=== PATIENT | male | born 1960 | race Caucasian/White ===

== ENCOUNTER 2018-06-18 13:25 | Outpatient (CLI) | payer BC ==
--- NOTE | 2018-07-15 12:09 | ULT ---
LOWER EXTREMITY ARTERIAL EVALUATION: Lower extremity arterial evaluation was performed using Doppler waveform analysis and segmental limb pressures. The Doppler waveform analysis in both lower extremities is normal. Ankle-arm index calculates to abou t 1.3 bilaterally with normal toe-brachial index of greater than 0.7 bilaterally. This is a normal resting arterial study of the lower extremities.
== END 2018-06-18 13:26 | disposition home or self-care (01) ==
LOC: ULT 13:25
PROVIDERS: ATTEND Family Medicine
DX: I73.9 Peripheral vascular disease, unspecified (principal)
CPT/HCPCS: 93922